=== PATIENT | male | born 1990 | race Caucasian/White ===

== ENCOUNTER 2016-08-19 14:46 | Emergency (ER) | payer MEDICARE, MEDICAID | END 2016-08-19 15:59 | disposition home or self-care (01) | DX: N50.89 Other specified disorders of the male genital organs (principal); Z03.89 Encounter for observation for other suspected diseases and conditions ruled out ==

== ENCOUNTER 2017-01-29 08:53 | Outpatient (CLI) | payer MEDICARE, MEDICAID ==
[2017-01-29 13:34] LABS: BASOPHILS % (AUTO) 0.6 %; EOSINOPHILS # (AUTO) 0.2 10^3/uL (0.0-0.7); HCT - HEMATOCRIT 43.6 % (42.0-52.0); LYMPHOCYTES # (AUTO) 1.7 10^3/uL (1.5-3.5); LYMPHOCYTES % (AUTO) 21.3 %; MEAN CORPUSCULAR HGB CONC 34.3 g/dL (32.0-36.0); MEAN CORPUSCULAR VOLUME 87.6 fL (80.0-94.0); MEAN PLATELET VOLUME 8.3 fL (7.4-11.4); MONOCYTES # (AUTO) 0.5 10^3/uL (0.0-1.0); MONOCYTES % (AUTO) 6.7 %; NEUTROPHILS # (AUTO) 5.4 10^3/uL (1.5-6.6); NEUTROPHILS % (AUTO) 69.4 %; NUCLEATED RED BLOOD CELLS AUTO 0.1 /100WBC; RED BLOOD COUNT 4.98 10^6/uL (4.70-6.10); RED CELL DISTRIBUTION WIDTH 13.5 % (12.0-15.0); UNCORRECTED WHITE BLOOD COUNT 7.8 x10^3/uL; WHITE BLOOD COUNT 7.8 x10^3/uL (4.8-10.8)
[2017-01-29 13:49] LABS: ALBUMIN/GLOBULIN RATIO 1.3 (1.0-2.2); BILIRUBIN,TOTAL 0.8 mg/dL (0.2-1.0); BUN - BLOOD UREA NITROGEN 17 mg/dL (6-20); CALCIUM 8.5 mg/dL (8.5-10.3); CARBON DIOXIDE - CO2 25 mmol/L (21-32); CHLORIDE 108 mmol/L (101-111); CHOL/HDL RATIO 4.1 (<5.0); CHOLESTEROL 168 mg/dL; GFR - MDRD 91 (>89); GLUCOSE 98 mg/dL (70-100); HDL CHOLESTEROL 41 mg/dL; LDL/HDL RATIO 2.8 (<3.6); POTASSIUM 4.2 mmol/L (3.5-5.0); SODIUM 139 mmol/L (135-145); TOTAL PROTEIN 7.3 g/dL (6.7-8.2); TRIGLYCERIDES 62 mg/dL; VLDL CHOLESTEROL 12 mg/dL
== END 2017-01-29 08:54 | disposition home or self-care (01) ==
LOC: LAB.N 08:53
PROVIDERS: ATTEND Family Medicine
DX: E66.9 Obesity, unspecified (principal); F84.0 Autistic disorder; Z79.899 Other long term (current) drug therapy; Z51.81 Encounter for therapeutic drug level monitoring
CPT/HCPCS: 36415; 80053; 80061; 84443; 85025

== ENCOUNTER 2017-04-25 11:38 | Emergency (ER) | payer MEDICARE, MEDICAID ==
[2017-04-25] MEDS ORDERED: AMOX/CLAV 875 MG/125 MG TABLET PO STA (12:22)
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
[2017-04-25] MEDS ORDERED: AMOX/CLAV 875 MG/125 MG TABLET PO ONE (12:43)
[2017-04-25 12:46] VITALS: BP 132/75
== END 2017-04-25 12:47 | disposition home or self-care (01) ==
LOC: ED 11:38
DX: S41.152A Open bite of left upper arm, initial encounter (principal); W50.3XXA Accidental bite by another person, initial encounter
CPT/HCPCS: 99283; A9270

== ENCOUNTER 2019-01-14 10:49 | Outpatient (CLI) | payer MEDICARE, MEDICAID ==
[2019-01-14 12:47] LABS: BASOPHILS # (AUTO) 0.1 10^3/uL (0.0-0.1); BASOPHILS % (AUTO) 0.5 %; EOSINOPHILS # (AUTO) 0.2 10^3/uL (0.0-0.7); EOSINOPHILS % (AUTO) 2.5 %; HGB - HEMOGLOBIN 14.3 g/dL (14.0-18.0); LYMPHOCYTES # (AUTO) 2.1 10^3/uL (1.5-3.5); LYMPHOCYTES % (AUTO) 22.4 %; MEAN CORPUSCULAR HEMOGLOBIN 30.4 pg (27.0-31.0); MEAN CORPUSCULAR HGB CONC 34.1 g/dL (32.0-36.0); MEAN PLATELET VOLUME 10.4 fL (7.4-11.4); MONOCYTES # (AUTO) 0.9 10^3/uL (0.0-1.0); MONOCYTES % (AUTO) 9.2 %; NEUTROPHILS # (AUTO) 6.2 10^3/uL (1.5-6.6); NEUTROPHILS % (AUTO) 65.1 %; PLT - PLATELET COUNT 341 10^3/uL (130-450); RED BLOOD COUNT 4.71 10^6/uL (4.70-6.10); RED CELL DISTRIBUTION WIDTH 13.3 % (12.0-15.0); WHITE BLOOD COUNT 9.5 x10^3/uL (4.8-10.8)
[2019-01-14 12:58] LABS: CALCIUM 8.9 mg/dL (8.5-10.3); CREATININE 0.8 mg/dL (0.6-1.2)
== END 2019-01-14 23:59 | disposition home or self-care (01) ==
LOC: LAB.N 10:49
PROVIDERS: ATTEND Physician Assistant Medical
DX: F84.0 Autistic disorder (principal); F91.8 Other conduct disorders; E66.9 Obesity, unspecified; J45.909 Unspecified asthma, uncomplicated
CPT/HCPCS: 36415; 80048; 85025

== ENCOUNTER 2019-06-10 11:00 | Outpatient (CLI) | payer MEDICARE, MEDICAID | END 2019-06-10 23:59 | disposition home or self-care (01) | LOC: LAB.N 11:00 | PROVIDERS: ATTEND Family Medicine | DX: R39.9 Unspecified symptoms and signs involving the genitourinary system (principal) | CPT/HCPCS: 87086 ==

== ENCOUNTER 2019-06-30 12:00 | Emergency (ER) | payer MEDICARE, MEDICAID ==
[2019-06-30 12:05] VITALS: BP 98/73
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
[2019-06-30] MEDS ORDERED: NEOMYCIN/POLYMYX/HC OTIC DROPS EACHEAR STA (12:07)
== END 2019-06-30 12:18 | disposition home or self-care (01) ==
LOC: EDUNIT# → ED 12:00
DX: H60.313 Diffuse otitis externa, bilateral (principal); F84.0 Autistic disorder
CPT/HCPCS: 99281; 99283; A9270

== ENCOUNTER 2019-06-30 19:04 | Outpatient (CLI) | payer MEDICARE, MEDICAID | END 2019-06-30 19:05 | disposition critical access hospital (66) | LOC: EMS 19:04 | PROVIDERS: ATTEND Surgery | DX: R45.6 Violent behavior (principal); R45.1 Restlessness and agitation | CPT/HCPCS: A0425; A0429 ==

== ENCOUNTER 2019-07-10 11:01 | Emergency (ER) | payer MEDICARE, MEDICAID ==
[2019-07-10 11:07] VITALS: BP 123/65
[2019-07-10] MEDS ORDERED: DEXAMETHASONE 10 MG/ML VIAL PO STA (12:04)
[2019-07-10] MEDS ORDERED: CHERRY SYRUP 10 ML UDC PO ONE (12:04)
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
== END 2019-07-10 12:18 | disposition home or self-care (01) ==
LOC: EDUNIT# → ED 11:01
DX: H66.002 Acute suppurative otitis media without spontaneous rupture of ear drum, left ear (principal)
CPT/HCPCS: 99282; 99283; A9270

== ENCOUNTER 2019-08-30 14:00 | Outpatient (CLI) | payer MEDICARE, MEDICAID | END 2019-08-30 14:01 | disposition critical access hospital (66) | LOC: EMS 14:00 | PROVIDERS: ATTEND Surgery | DX: S61.412A Laceration without foreign body of left hand, initial encounter (principal); W25.XXXA Contact with sharp glass, initial encounter; Y92.039 Unspecified place in apartment as the place of occurrence of the external cause | CPT/HCPCS: A0425; A0429 ==

== ENCOUNTER 2019-08-30 14:29 | Emergency (ER) | payer MEDICARE, MEDICAID ==
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
[2019-08-30] MEDS ORDERED: LIDOCAINE 1%-EPI 1:100000 20 ML MDV SUBQ STA (15:01)
[2019-08-30] MEDS ORDERED: ACETAMINOPHEN 325 MG TABLET PO STA (15:01)
[2019-08-30] MEDS ORDERED: LIDOCAINE-EPINEPH-TETRACAINE 3 ML SYRINGE TOP STA (15:01)
[2019-08-30 16:21] VITALS: BP 137/63
== END 2019-08-30 16:21 | disposition home or self-care (01) ==
LOC: EDUNIT# → ED 14:29
DX: S61.412A Laceration without foreign body of left hand, initial encounter (principal); S61.512A Laceration without foreign body of left wrist, initial encounter; W22.8XXA Striking against or struck by other objects, initial encounter; Y93.89 Activity, other specified; Y92.199 Unspecified place in other specified residential institution as the place of occurrence of the external cause
CPT/HCPCS: 12001; 99283; A9270

== ENCOUNTER 2019-11-08 15:33 | Outpatient (CLI) | payer MEDICARE, MEDICAID | END 2019-11-08 15:34 | disposition EMS.NT | LOC: EMS 15:33 | PROVIDERS: ATTEND Surgery | DX: Z03.89 Encounter for observation for other suspected diseases and conditions ruled out (principal) ==

== ENCOUNTER 2020-05-18 16:14 | Outpatient (CLI) | payer MEDICARE, MEDICAID | END 2020-05-18 16:15 | disposition home or self-care (01) | LOC: COV 16:14 | PROVIDERS: ATTEND Family Medicine | DX: Z20.828 Contact with and (suspected) exposure to other viral communicable diseases (principal) ==

== ENCOUNTER 2020-06-04 17:17 | Outpatient (CLI) | payer MEDICARE, MEDICAID | END 2020-06-04 17:18 | disposition home or self-care (01) | LOC: COV 17:17 | PROVIDERS: ATTEND Family Medicine | DX: U07.1 COVID-19 (principal) ==

== ENCOUNTER 2022-06-30 12:40 | Outpatient (CLI) | payer MEDICARE, MEDICAID | END 2022-06-30 12:41 | disposition EMS.NT | LOC: EMS 12:40 | DX: Z53.9 Procedure and treatment not carried out, unspecified reason (principal) ==

== ENCOUNTER 2022-08-18 14:59 | Outpatient (CLI) | payer MEDICARE, MEDICAID | END 2022-08-18 23:59 | disposition EMS.NT | LOC: EMS 14:59 | DX: S61.412A Laceration without foreign body of left hand, initial encounter (principal); W22.8XXA Striking against or struck by other objects, initial encounter; Y92.008 Other place in unspecified non-institutional (private) residence as the place of occurrence of the external cause ==

== ENCOUNTER 2024-02-02 15:13 | Outpatient (CLI) | payer MEDICARE, MEDICAID | END 2024-02-02 15:14 | disposition critical access hospital (66) | LOC: EMS 15:13 | DX: S61.412A Laceration without foreign body of left hand, initial encounter (principal); W25.XXXA Contact with sharp glass, initial encounter; Y92.009 Unspecified place in unspecified non-institutional (private) residence as the place of occurrence of the external cause | CPT/HCPCS: A0425; A0429 ==

== ENCOUNTER 2024-02-02 15:32 | Emergency (ER) | payer MEDICARE, MEDICAID ==
--- NOTE | 2024-02-02 15:56 | ED Physician Documentation ---
History of Present Illness - Stated complaint Stated Complaint: LT HAND LAC - History obtained from History obtained from: EMS - Additonal information Additional information: Feng is a 33-year-old male presents with left hand injury. He resides in a intermediate, it is unclear what happened but he was noted to have some small abrasions on the dorsum of the left hand. He is unable to provide any history. Review of Systems Unable to obtain: Other (developmental delay) PD PAST MEDICAL HISTORY - Past Medical History Past Medical History: Yes Respiratory: Asthma - Past Surgical History Past Surgical History: Yes - Present Medications Home Medications: Ambulatory Orders Medication Instructions Recorded Confirmed Citalopram [CeleXA] 40 mg PO DAILY 02/02/13 08/30/19 Clonazepam 2.5 mg PO DAILY 02/02/13 08/30/19 Loratadine [Claritin] 10 mg PO DAILY PRN 02/02/13 08/30/19 EPINEPHrine [Epipen 2-Clemente] 0.3 mg IJ .FREQ 04/25/17 08/30/19 Acetaminophen 650 mg PO DAILY PRN 08/30/19 08/30/19 Famotidine 20 mg PO DAILY 08/30/19 08/30/19 Melatonin 3 mg PO DAILY PM 08/30/19 08/30/19 Mupirocin 1 applic TP BID #15 g 08/30/19 Propranolol HCl 20 mg PO TID 08/30/19 08/30/19 QUEtiapine [SEROquel] 100 mg PO QPM 08/30/19 08/30/19 QUEtiapine [SEROquel] 200 mg PO DAILY 08/30/19 08/30/19 - Allergies Allergies/Adverse Reactions: Allergies Allergy/AdvReac Type Severity Reaction Status Date / Time shellfish derived Allergy Unknown Verified 06/30/19 12:05 - Social History Does the pt smoke?: No Smoking Status: Never smoker Does the pt drink ETOH?: No Does the pt have substance abuse?: No - Immunizations Immunizations are current?: Yes - POLST Patient has POLST: No PD ED PE NORMAL - Vitals Vital signs reviewed: Yes - General General: Alert and oriented X 3, No acute distress, Well developed/nourished - HEENT HEENT: Atraumatic, Moist mucous membranes - Derm Derm: Normal color, Warm and dry, Other (light abrasions to the lateral dorsum of the left hand) - Extremities Extremities: No deformity, No tenderness to palpate, Normal ROM s pain Results - Vitals Vitals: Oxygen O2 Source Room air PD Medical Decision Making - ED course Complexity details: considered differential, d/w patient ED course: 33 -year-old male presented with left hand injury as described in HPI. He has some small abrasions in the left hand, does not require closure. Advised to keep clean and otherwise dry, can cover with Band-Aid. Will obtain a hand x-ray to rule out fracture though I think this is unlikely but patient is not able to for any history and unknown if he has any pain. Departure - Departure Clinical Impression: Abrasion of left hand Qualifiers: Encounter type: initial encounter Qualified Code(s): S60.512A - Abrasion of left hand, initial encounter Condition: Good Instructions: ED Abrasion
--- NOTE | 2024-02-02 17:02 | XRAY Report ---
PROCEDURE: Hand 1-2V LT INDICATIONS: injury TECHNIQUE: 2 views of the hand(s) acquired. COMPARISON: None. FINDINGS: Bones: No displaced fracture is identified. Soft tissues: There is no radiopaque foreign body. Soft tissue swelling is seen adjacent to the fift h ray. IMPRESSION: No radiopaque foreign body or acute displaced fracture. If there is high concern for occult injury, consider repeat radiography or cross-sectional imaging. Reviewed by: Tiago Barahona MD on 02/02/2024 5:00 PM PDT Approved by: Tiago Barahona MD on 02/02/2024 5:00 PM PDT Station ID: [id number]
[2024-02-02 17:12] VITALS: BP 171/98; O2SAT 97
== END 2024-02-02 17:04 | disposition home or self-care (01) ==
LOC: EDUNIT# → ED 15:32
DX: S60.512A Abrasion of left hand, initial encounter (principal); X58.XXXA Exposure to other specified factors, initial encounter; J45.909 Unspecified asthma, uncomplicated; R62.50 Unspecified lack of expected normal physiological development in childhood
CPT/HCPCS: 99282; 99283